=== PATIENT | male | born 1975 | race Caucasian/White ===

== ENCOUNTER 2025-03-28 12:25 | Day surgery (SDC) | payer MEDICAID, SELFPAY ==
--- NOTE | 2025-03-27 07:00 | EKG_ITS ---
[facility] Test Date: 2025-03-27 Pat Name: MAGNOLIA AGARWAL Department: Room: - Gender: Male [employer]: JUAN DIEGO : 1975 Requested By: Milady Kaplan Order Number: [id number] Reading MD: Milady Kaplan Measurements Intervals [place] Rate: 78 P: 64 LA: 174 QRS: 43 QRSD: 76 T: 65 QT: 365 QTc: 417 Interpretive Statements SINUS RHYTHM WITH OCCASIONAL ECTOPIC PREMATURE COMPLEXES POSSIBLE LEFT ATRIAL ENLARGEMENT [-0.1mV P WAVE IN V1/V2] SEPTAL MYOCARDIAL INFARCTION , OF INDETERMINATE AGE [40+ ms Q WAVE IN V1/V2] Compared to ECG 07/20/2023 08:15:45 Myocardial infarct finding now present /[id number]/[id number].pdf
[2025-03-27 08:30] VITALS: BMI 31.6
[2025-03-27 09:24] LABS: Basophils # (Auto) 0.1 Thou/mm3 (0.0-0.2); Basophils % (Auto) 1 % (0-2.5); Eosinophils # (Auto) 0.4 Thou/mm3 (0.0-0.5); Eosinophils % (Auto) 3 % (0-10); Hematocrit 44.5 % (41.0-53.0); Hemoglobin 16.1 g/dL (13.5-16.0); Immature Granulocytes % (Auto) 0 % (0-0); Immature Granulocytes Auto 0.04 Thou/mm3 (0.00-0.00); Lymphocytes # (Auto) 2.7 Thou/mm3 (1.0-4.8); Lymphocytes % (Auto) 27 % (10-50); Mean Corpuscular HGB Conc 36.2 g/dl (31.0-37.0); Mean Corpuscular Hemoglobin 32.7 pg (25.0-35.0); Mean Corpuscular Volume 90 fL (80-100); Monocytes # (Auto) 0.6 Thou/mm3 (0.0-0.8); Monocytes % (Auto) 6 % (0-12); Neutrophils # (Auto) 6.4 Thou/mm3 (1.8-7.7); Neutrophils % (Auto) 63 % (37-80); Nucleated Red Blood Cell % 0 /100 WBC (0); Platelet Count 221 Thou/mm3 (140-440); Red Blood Count 4.92 Miln/mm3 (4.50-5.90); White Blood Count 10.2 Thou/mm3 (3.8-10.6)
[2025-03-27 09:38] LABS: Alanine Aminotransferase 38 U/L (10-49); Albumin, Serum 4.4 gm/dL (3.5-5.0); Albumin/Globulin Ratio 1.6 (1.2-2.2); Alkaline Phosphatase 68 U/L (46-116); Anion Gap 10 (7-16); Aspartate Amino Transferase 38 U/L (0-34); BUN/Creatinine Ratio 15 Ratio (12-20); Bilirubin,Total 0.8 mg/dL (0.3-1.2); Blood Urea Nitrogen 15 mg/dL (9-23); Calcium 8.6 mg/dL (8.3-10.6); Calcium (Corrected) 8.6 mg/dL (8.5-10.1); Carbon Dioxide 25.2 mMol/L (20.0-31.0); Chloride 104 mMol/L (98-107); Estimated Creatinine Clearance 113.6 mL/min (>60); Globulin 2.7 gm/dL (2.3-3.5); Glucose 153 mg/dL (74-106); Osmolality,Calculated 281 (275-295); Potassium 3.8 mMol/L (3.4-5.1); Sodium 139 mMol/L (136-145); Total Protein 7.1 gm/dL (5.7-8.2); eGFR > 60 See Note
--- NOTE | 2025-03-27 15:09 | SUR.PREOP ---
Voice message left for pt to come in tomorrow at 1230 for surgery.
[2025-03-28 13:03] VITALS: BP 144/86; PULSE 69; RESP 20; TEMP 36.6; O2SAT 95; BMI 32.2
[2025-03-28] MEDS: RINGERS LACTATED 1000 ML 1,000 ML 20 ML IV (13:16)
[2025-03-28 15:13] VITALS: BP 147/107; PULSE 64; PULSE 68; RESP 16; TEMP 36.7; O2SAT 96
--- NOTE | 2025-03-28 15:13 | SUR.PHASEII ---
1513: Pt. AAOx4,vitals stable, breathing unlabored, no complaint of pain or nausea, dressing to back CDI, no active bleed noted, report received from MD Garcia and Renato CULLEN.
--- NOTE | 2025-03-28 15:14 | PD.SUROPNT ---
Date of Procedure 03/28/25 Pre Op Diagnosis Left upper back subcutaneous soft tissue mass Post Op Diagnosis Left upper back subcutaneous soft tissue mass Procedure Excision of subcutaneous soft tissue mass from left upper back Findings Approximately 4 cm firm and mobile mass in the subcutaneous soft tissue of left upper back Procedure Description Patient brought into the operating room in supine position. After administration of monitored anesthesia care, patient was placed in right lateral decubitus position. His left upper back prepped and draped in standard surgical manner. After administration of local anesthesia an approximately 5 cm elliptical incision was made and dissection was deepened into soft tissue. Underlying subcutaneous soft tissue mass was circumferentially dissected off surrounding tissue and excised. The wound was washed and irrigated. Hemostasis achieved using electrocautery. Soft tissue reapproximated with interrupted sutures using 2-0 Vicryl. Subcutaneous tissue closed with interrupted sutures using 3-0 Vicryl and incision was closed with 4-0 Monocryl in subcuticular fashion. Dermabond and sterile dressings applied. Patient tolerated procedure well. He was placed in supine position. He was breathing spontaneously and without difficulty and was transferred to postanesthesia care in stable condition. Instruments, needles and sponge counts were reported to be correct x 2. Anesthesia MAC and local Pathology / specimen Other (Left upper back mass) Estimated Blood Loss 5 Condition Stable Disposition PACU Surgeon Milady Kaplan MD Surgical Staff Operation Date: 03/28/25 14:45 Case Staff Anesthesiologist: Gallito Garcia
[2025-03-28 15:18] VITALS: BP 129/95; PULSE 64; RESP 16; TEMP 36.7; O2SAT 95
[2025-03-28 15:23] VITALS: BP 127/92; PULSE 69; RESP 20; TEMP 36.7; O2SAT 95
[2025-03-28 15:28] VITALS: BP 126/90; PULSE 65; RESP 14; TEMP 36.7; O2SAT 96
[2025-03-28 15:43] VITALS: BP 133/79; PULSE 68; RESP 20; TEMP 36.6; O2SAT 95
--- NOTE | 2025-03-28 15:50 | SUR.PHASEII ---
1550: Pt. AAOx4, vitals stable, breathing unlabored, no complaint of pain or nausea, dressing to back CDI, no active bleed noted, pt. tolerated sips of juice well, pt. ambulated to wheelchair with steady gait and no assist, no complications. Gave discharge instructions to the pt. and his ride, both verbalized understanding and had no further questions. Pt. left with all personal belongings.
== END 2025-03-28 15:50 | disposition home or self-care (01) ==
PROVIDERS: Anesthesiology; PCP Family Medicine; Referring Provider Surgery; Visit Provider Surgery
PROC: (CPT 21931; principal; 2025-03-28 14:30)
DX: L72.3 Sebaceous cyst (principal); Z01.810 Encounter for preprocedural cardiovascular examination
CPT/HCPCS: 21931; 36415; 80053; 85025; 93005; A4217; A4649; J0690; J1885; J2250; J2704; J3010; J3490; J7120